=== PATIENT | female | born 1975 | race American Indian/Alaskan Native ===

== ENCOUNTER 2017-08-21 09:03 | Outpatient (CLI) | payer OTHER ==
[2017-08-21] MEDS ORDERED: LOVENOX30 MG/0.3 ×2 (13:52→13:53)
[2017-08-21] MEDS ORDERED: PRENATAL 19 TA1 EACH PO (13:54)
[2017-08-21] MEDS ORDERED: BENADRYL ALLERG25 MG PO (13:57)
== END 2017-08-21 10:23 | disposition home or self-care (01) ==
LOC: NST 09:03
DX: Z34.83 Encounter for supervision of other normal pregnancy, third trimester (principal)

== ENCOUNTER 2017-08-21 13:22 | Inpatient (IN) | payer OTHER ==
[~2017-08-21] VITALS: Ht 160 cm; Wt 0.9 kg
[2017-08-21] MEDS ORDERED: LOVENOX30 MG/0.3 ×2 (13:52→13:53)
[2017-08-21] MEDS ORDERED: PRENATAL 19 TA1 EACH PO (13:54)
[2017-08-21] MEDS ORDERED: BENADRYL ALLERG25 MG PO (13:57)
== END 2017-09-01 08:54 | disposition home or self-care (01) | DRG 765 ==
LOC: OB/GYN 13:22 → LDR 13:22 → OB/GYN 08-22 08:42
PROVIDERS: Obstetrics & Gynecology Maternal & Fetal Medicine
PROC: 4A1HXCZ Monitoring of Products of Conception, Cardiac Rate, External Approach (ICD-10-PCS; 2017-08-21)
PROC: 4A033R1 Measurement of Arterial Saturation, Peripheral, Percutaneous Approach (ICD-10-PCS; 2017-08-24)
PROC: 10D00Z1 Extraction of Products of Conception, Low, Open Approach (ICD-10-PCS; principal; 2017-08-24 11:00)
PROC: 30233N1 Transfusion of Nonautologous Red Blood Cells into Peripheral Vein, Percutaneous Approach (ICD-10-PCS; 2017-08-27)
DX: O76 Abnormality in fetal heart rate and rhythm complicating labor and delivery (principal); O45.8X3 Other premature separation of placenta, third trimester; O14.14 Severe pre-eclampsia complicating childbirth; Z3A.30 30 weeks gestation of pregnancy; Z37.0 Single live birth; O90.81 Anemia of the puerperium; O09.513 Supervision of elderly primigravida, third trimester

== ENCOUNTER 2017-09-22 17:09 | Emergency (ER) | payer OTHER ==
[~2017-09-22] VITALS: Ht 160 cm; Wt 59.0 kg
[~2017-09-22 17:09] MED LIST: BENADRYL ALLERG25 MG PO; LOVENOX30 MG/0.3; PRENATAL 19 TA1 EACH PO
== END 2017-09-22 18:57 | disposition home or self-care (01) ==
LOC: ER 17:09
DX: G25.89 Other specified extrapyramidal and movement disorders (principal)